=== PATIENT | male | born 1955 | race Hispanic/Latino ===

== ENCOUNTER 2016-07-01 00:39 | Emergency (ER) | payer OTHER ==
[2016-07-01] MEDS ORDERED: LORazepam 2 MG/ML DISP.SYRIN IV ONE (01:03)
[2016-07-01] MEDS ORDERED: LORazepam 2 MG/ML DISP.SYRIN ONE (01:07)
[2016-07-01 01:13] LABS: Hematocrit 40.4 % (42.0-52.0); Hemoglobin 13.9 gm/dL (13.5-18.0); Mean Cell Volume 93.5 fl (78-100); Mean Corpuscular Hemoglobin 32.2 pg (27-31); Mean Corpuscular Hgb Conc 34.4 g/dl (32-36); Mean Platelet Volume 8.7 fl (6.0-9.5); Neutrophil # 2.8 K/mm3 (1.3-6.0); Neutrophil % 47.9 % (42-75.0); Platelet Count 261 K/mm3 (150-450); Red Blood Count 4.32 M/mm3 (4.7-6.0); Red Cell Distribution Width 11.7 % (11.5-14.0); White Blood Count 5.9 K/mm3 (4.0-10.5)
--- NOTE | 2016-07-01 01:21 | ERNOTE ---
Dyspnea - Date Date of Service: 07/01/16 - General Presenting Symptoms: shortness of breath Time Seen by Provider: 07/01/16 00:58 Source: patient Exam Limitations: no limitations - Immun/Allergies/Home Medications Immunizations: IMMUNIZATION HX Immunizations Up to Date No History of Influenza Vaccine No Hx Pneumococcal Vaccination No Allergies/Adverse Reactions: Allergies cortisone [Cortisone] Allergy (Verified 12/21/15 06:29) Iodinated Contrast Media - IV Dye Allergy (Verified 12/21/15 06:29) Penicillins Allergy (Verified 12/21/15 06:29) Home Medications: HOME MEDICATIONS NK [No Home Medication] 07/01/16 [Last Taken Unknown] - History of Present Illness Narrative: 60-year-old male states he awoke from sleep feeling as though he couldn't get a full breath of air. he appear anxious but vital are stable, color is good and his pulse ox is 99% on room air. He denies cold cough wheeze or other constitutional signs or symptoms. He does not have a history of pulmonary disease and has not felt ill recently. He denies chest pain. Severity: mild Treatment AD[employer]ISING [employer]UMNIST: none Initiating event: Reports: sleep - denies having a nightmare Frequency of episodes: Reports: no prior episodes Modifying Factors - (Improves): Reports: lying down Associated Symptoms-Dyspnea: Reports: denies symptoms Review of Systems - Review of Systems Constitutional: Present: no symptoms reported EYE: Present: no symptoms reported ENT: Present: no symptoms reported Respiratory: Present: See HPI Cardiology: Present: no symptoms reported Gastrointestinal/Abdominal: Present: no symptoms reported Genitourinary: Present: no symptoms reported Musculoskeletal: Present: no symptoms reported Skin: Present: no symptoms reported Neurological: Present: See HPI Endocrine: Present: no symptoms reported Hematologic/Lymphatic: Present: no symptoms reported Psych: Present: no symptoms reported - Patient's Past Medical History Patient History - Medical: No pertinent hx Patient History - Cancer: Bladder Patient History - Surgical Procedures: Cancer Surgery - Family History Mother Family History - Medical: No pertinent hx - Social History Living Situations: home Smoking Status: Never smoker Have you smoked in the past 12 months: No Do you dip or chew tobacco: No Alcohol Use: occasionally Drug Use: none Physical Exam - Physical Exam General Appearance: Present: wd/wn, alert, mild distress, anxious Eye Exam: Normal inspection: bilateral, PERRL: bilateral Ears, Nose, Throat: Present: normal ENT inspection, hearing grossly normal, normal pharynx Neck: Present: normal inspection, nontender Respiratory: Present: no respiratory distress, normal breath sounds, no accessory muscle use, chest nontender, lungs clear Cardiovascular/Chest: Present: regular rate, rhythm, no murmur, normal peripheral pulses Gastrointestinal/Abdominal: Present: normal bowel sounds, nontender, nondistended, soft, no organomegaly Rectal Exam: Present: deferred Back Exam: Present: normal inspection, normal range of motion, no CVA tenderness , no vertebral tenderness Extremity Exam: Present: normal inspection, non-tender, no edema, normal range of motion Neurological Exam: Present: alert, oriented, normal mood/affect, no motor/ sensory deficits Skin Exam: Present: normal color, warm/dry Lymphatic Exam: Present: no adenopathy ED Progress - Vital Signs Vital Signs: Vital Signs 07/01/16 00:49 Temperature 36.4 C Pulse Rate 84 Respiratory 15 Rate Blood Pressure 169/96 O2 Sat by Pulse 98 Oximetry - EKG EKG: NSR, no ST T wave changes - X-Ray X-Ray #1 X-Ray: chest - heart and lungs are within normal limits - Progress/Reassessment Chief Complaint: Dyspnea Progress:: Improved Progress Note-Subjective: 07/01/16 01:43 Patient states that he has had panic attacks in the past but hasn't had one for a number of years. His lab and x-rays physical exam are all within normal limits and I believe that he is in fact having panic attacks evening. He did drive over here and does not want to take any medication at this time in the ER so he can drive home. He does have some Xanax at home that he can use when he gets there and I suggest he take one of his Xanax and go to sleep. He was reassured that his heart and lungs and vitals are all normal Departure Clinical Impression: Panic attack - Departure Disposition: Home self-care Instructions: Panic Attacks, [id number] Additional Instructions: Take a Xanax when you get home and go to sleep. Follow up with Dr. Mai Referrals: Michael Em MD [Primary Care Provider] -
[2016-07-01 01:28] LABS: Albumin * 3.4 gm/dl (3.4-5.0); Anion Gap 13.7 mmol/L (6.8-13.8); BUN/Creatinine Ratio 24.5 (9.0-21.6); Bilirubin, Total 0.2 mg/dL (0.0-1.1); Ca. Corrected For Albumin 9.1 mg/dL (8.4-10.2); Calcium * 8.9 mg/dL (7.9-10.9); Carbon Dioxide 25.5 mmol/L (24-32.6); Potassium 4.2 mmol/L (3.4-4.6); Total Protein 6.5 gm/dL (6.2-8.2)
[2016-07-01 01:42] VITALS: BP 144/80
== END 2016-07-01 01:55 | disposition home or self-care (01) ==
LOC: ER 00:39
DX: F41.0 Panic disorder [episodic paroxysmal anxiety] (principal); R06.02 Shortness of breath; Z85.51 Personal history of malignant neoplasm of bladder

== ENCOUNTER 2016-08-23 16:06 | Emergency (ER) | payer OTHER ==
[2016-08-23 16:27] VITALS: BP 139/95
--- OUTSIDE RECORDS SUMMARY | 2016-08-23 18:16 | XMS REPORT | Summary of Care ---
:1955 Author Organization [facility] Address [address] [place] [address] Care Team Providers Name Role Phone Eren Mabry Primary Care Physician Encounter Date(s): 08/07/16 - 08/07/[address] [address] [facility] Discharge Diagnosis: Other hyperlipidemia Discharge Diagnosis: Onychomycosis of right great toe. Discharge Disposition: 01 Discharged to Home or Self Care Attending Physician: Eren Mabry MD Referring Physician: Eren Mabry MD Vital Signs Most recent to oldest [Reference Range]: 1 Peripheral Pulse Rate [60-100 bpm] 76 bpm (08/07/16 1:06 PM) Blood Pressure [90-130/60-90 mmHg] 130/82mmHg (08/07/16 1:06 PM) Mean Arterial Pressure, Cuff 98 mmHg (08/07/16 1:06 PM) Most recent to oldest [Reference Range]: 1 Height/Length Measured 158 cm (08/07/16 1:06 PM) Weight Dosing 89.1 kg (08/07/16 1:06 PM) Weight Measured 89.1 kg (08/07/16 1:06 PM) BSA Measured 1.9 m2 (08/07/16 1:06 PM) Body Mass Index Measured 35.69 kg/m2 (08/07/16 1:06 PM) Problem List No data available for this section Allergies, Adverse Reactions, Alerts Substance Reaction Severity Status contrast media (iodine-based) rash Active cortisone rash Active penicillin rash Active Medications No Known Medications Results Patient Viewable Results Most recent to oldest [Reference Range]: 1 WBC [4.8-10.8 thou/mm3] 6.8 thou/mm3 (08/07/16 1:59 PM) RBC [4.60-6.00 Mil/mm3] 4.67 Mil/mm3 (08/07/16 1:59 PM) Hgb [14.0-17.9 g/dL] 14.9 g/dL (08/07/16 1:59 PM) Hct [42.0-52.0 %] 43.6 % (08/07/16 1:59 PM) MCV [80.0-94.0 fL] 93.4 fL (08/07/16 1:59 PM) MCH [25.0-38.0 pg/cell] 31.9 pg/cell (08/07/16 1:59 PM) MCHC [31.0-37.0 g/dL] 34.2 g/dL (08/07/16 1:59 PM) RDW [11.6-14.8 %] 12.1 % (08/07/16 1:59 PM) Platelet [130-400 thou/mm3] 347 thou/mm3 (08/07/16 1:59 PM) MPV [0.0-99.8 fL] 9.0 fL (08/07/16 1:59 PM) Neutrophils % Auto [50.0-75.0 %] 57.1 % (08/07/16 1:59 PM) Lymphocytes % Auto [15.0-41.0 %] 33.0 % (08/07/16 1:59 PM) Monocytes % Auto [4.0-10.0 %] 7.7 % (08/07/16 1:59 PM) Eosinophils % Auto [0.0-6.0 %] 1.8 % (08/07/16 1:59 PM) Basophil % Auto [0.0-1.0 %] 0.4 % (08/07/16 1:59 PM) Neutrophils Absolute [1.5-5.9 thou/mm3] 3.9 thou/mm3 (08/07/16 1:59 PM) Lymphocytes Absolute [1.5-4.0 thou/mm3] 2.3 thou/mm3 (08/07/16 1:59 PM) Monocytes Absolute [0.0-0.9 thou/mm3] 0.5 thou/mm3 (08/07/16 1:59 PM) Eosinophil Absolute [0.0-0.7 thou/mm3] 0.1 thou/mm3 (08/07/16 1:59 PM) Basophil Absolute [0.0-0.2 thou/mm3] 0.0 thou/mm3 (08/07/16 1:59 PM) Sodium Lvl [136-145 mmol/L] 139 mmol/L (08/07/16 1:59 PM) Potassium Lvl [3.5-5.1 mmol/L] 5.0 mmol/L (08/07/16 1:59 PM) Chloride Lvl [98-107 mmol/L] 103 mmol/L (08/07/16 1:59 PM) Bicarbonate Lvl [21-32 mmol/L] 29 mmol/L (08/07/16 1:59 PM) Anion Gap [12-19] 12 (08/07/16 1:59 PM) Glucose Lvl [74-106 mg/dL] 97 mg/dL (08/07/16 1:59 PM) BUN [7-18 mg/dL] 21 mg/dL *HI* (08/07/16 1:59 PM) Creatinine Lvl [0.70-1.30 mg/dL] 0.84 mg/dL (08/07/16 1:59 PM) BUN/Creat Ratio 25 *NA* (08/07/16 1:59 PM) eGFR AA [>=60] >60 (08/07/16 1:59 PM) eGFR CLEMENT [>=60] >60 (08/07/16 1:59 PM) Calcium Lvl [8.5-10.1 mg/dL] 9.1 mg/dL (08/07/16 1:59 PM) Total Protein [6.4-8.2 g/dL] 7.4 g/dL (08/07/16 1:59 PM) Albumin Lvl [3.4-5.0 g/dL] 4.1 g/dL (08/07/16 1:59 PM) Globulin 3 g/dL *NA* (08/07/16 1:59 PM) A/G Ratio [1.0-2.0] 1.2 (08/07/16 1:59 PM) Bilirubin Total [0.2-1.0 mg/dL] 0.3 mg/dL (08/07/16 1:59 PM) Alkaline Phosphatase [46-116 unit/L] 85 unit/L (08/07/16 1:59 PM) AST [15-37 unit/L] 26 unit/L (08/07/16 1:59 PM) ALT [16-63 unit/L] 40 unit/L (08/07/16 1:59 PM) Cholesterol Total [0-200 mg/dL] 251 mg/dL *HI* (08/07/16 1:59 PM) Triglyceride [0-200 mg/dL] 216 mg/dL *HI* (08/07/16 1:59 PM) HDL Cholesterol [40-60 mg/dL] 42 mg/dL (08/07/16 1:59 PM) LDL Cholesterol (Direct) [0-130 mg/dL] 166 mg/dL *HI* (08/07/16 1:59 PM) Non HDL Cholesterol [0-160 mg/dL] 209 mg/dL *HI* (08/07/16 1:59 PM) TSH [0.36-3.74 mIU/L] 2.42 mIU/L (08/07/16 1:59 PM) UA Color Yellow *NA* (08/07/16 1:59 PM) Urine Clarity Clear *NA* (08/07/16 1:59 PM) Specific [place] [1.001-1.020] 1.020 (08/07/16 1:59 PM) Urine pH [5.0-7.0] 5.0 (08/07/16 1:59 PM) Ketones [Negative] 1+ *ABN* (08/07/16 1:59 PM) Bilirubin [Negative] Negative (08/07/16 1:59 PM) Urine Protein [Negative] Negative (08/07/16 1:59 PM) Glucose [Negative] Negative (08/07/16 1:59 PM) Urine HGB [Negative] 1+ *ABN* (08/07/16 1:59 PM) Urobilinogen [0.2-1.0] 0.2 (08/07/16 1:59 PM) Nitrite [Negative] Negative (08/07/16 1:59 PM) Leuk Esterase [Negative] Negative (08/07/16 1:59 PM) Urine WBC [Negative] 0-2 *ABN* (08/07/16 1:59 PM) Urine RBC [Negative] 0-2 *ABN* (08/07/16 1:59 PM) Squamous Epi [Negative] 0-2 *ABN* (08/07/16 1:59 PM) Mucus [Negative] Trace *ABN* (08/07/16 1:59 PM) Immunizations No data available for this section Procedures Procedure Date Related Diagnosis Body Site Arthroscopy of knee Hernia Meniscal repair Tympanectomy Social History No data available for this section Assessment and Plan No data available for this section
--- OUTSIDE RECORDS SUMMARY | 2016-08-23 18:16 | XMS REPORT | Continuity of Care Document ---
:1955 Author Organization [facility] ([facility]) Address [address] [place] [address] Phone [phone] Care Team Providers Name Role Phone Michael Em Primary Care Provider [phone] Source Comments This disclosure is being made pursuant to the Care Everywhere program, applicable federal and state laws, and may not contain all informaitonavailable regarding this patient.[facility] ([facility]) Active Allergies and Adverse Reactions Allergen Noted Date Severity Reactions Comments Cortisone 01/13/2011 Rash Iodinated Contrast Media - Oral And Iv Dye 01/13/2011 Seizure Penicillins 04/06/2011 Unknown Current Medications No known medications Active Problems Not on file Social History Tobacco Use Types Packs/Day Years Used Date Never Smoker Smokeless Tobacco: Never Used Last Filed Vital Signs Vital Sign Reading Time Taken Blood Pressure 120/82 07/04/2011 2:08 PM [employer] Pulse 92 07/04/2011 2:08 PM [employer] Temperature 36.9 C (98.4 F) 07/04/2011 2:08 PM [employer] Respiratory Rate 20 07/04/2011 2:08 PM [employer] Height 1.676 m (5' 6") 07/04/2011 2:08 PM [employer] [facility] Weight 84.823 kg (187 lb) 07/04/2011 2:08 PM [employer] [facility] Body Mass Index 30.2 07/04/2011 2:08 PM [employer] [facility] Oxygen Saturation 96% 07/04/2011 2:08 PM [employer] [facility] Plan of Care Health Maintenance Due Date Last Done Comments HCV Screening 1955 Hepatitis B Vaccine (1 of 3 - Primary Series) 1955 Tdap Vaccine 1964 Lipid Disorder Screening 12/31/1971 Td Vaccine 12/31/1971 Colonoscopy 2003 Prostate Cancer Screening 12/31/2003 Zoster Vaccine 2013 Influenza Vaccine: Seasonal (#1) 01/23/2016 Results from Last 3 Months Not on file
--- NOTE | 2016-08-23 19:17 | ERNOTE ---
Upper Extremity HPI - Narrative Date of Service: 08/23/16 - General Extremities Pain Location: 2nd finger: left Time Seen by Provider: 08/23/16 17:54 Source: patient Exam Limitations: no limitations - Immun/Allergies/Home Medications Immunizations: IMMUNIZATION HX Immunizations Up to Date Yes History of Influenza Vaccine No Hx Pneumococcal Vaccination No Allergies/Adverse Reactions: Allergies Allergy/AdvReac Type Severity Reaction Status Date / Time cortisone [Cortisone] Allergy Verified 12/21/15 06:29 Iodinated Contrast Media - Allergy Verified 12/21/15 06:29 IV Dye Penicillins Allergy Verified 12/21/15 06:29 Home Medications: HOME MEDICATIONS NK [No Home Medication] 07/01/16 [Last Taken Unknown] - History of Present Illness Narrative: Pt. 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 Pt. denies any numbness, tingling, or decreased ROM. Pt. states that bleeding stops with pressure application but it starts bleeding again when pressure is removed. Pt. denies any use of antcoagulants. Review of Systems - Review of Systems Constitutional: Present: no symptoms reported EYE: Present: no symptoms reported ENT: Present: no symptoms reported Respiratory: Present: no symptoms reported. Absent: shortness of breath, cough , wheezing Cardiology: Present: no symptoms reported. Absent: chest pain, palpitations, edema Gastrointestinal/Abdominal: Present: no symptoms reported Genitourinary: Present: no symptoms reported Musculoskeletal: Present: no symptoms reported. Absent: back pain, joint pain Skin: Present: other - laceration L second finger see HPI Neurological: Present: no symptoms reported. Absent: headache, dizziness/light- headedness, numbness, tingling All Other Systems: All systems neg except as marked - Patient's Past Medical History Patient History - Medical: No pertinent hx Patient History - Cardiac/Respiratory: No pertinent hx Patient History - Cancer: Bladder Patient History - Surgical Procedures: Cancer Surgery Patient History - Other: None - Family History Mother Family History - Medical: No pertinent hx - Social History Living Situations: home Abuse History: No History of abuse Psych History: Hx of Anxiety, Hx of Depression Smoking Status: Never smoker Do you dip or chew tobacco: No Alcohol Use: occasionally Drug Use: none - Immunizations Immunizations Up to Date: Yes Hx Pneumococcal Vaccination: No History of Influenza Vaccine: No Physical Exam - Physical Exam General Appearance: Present: wd/wn, alert, no apparent distress Eye Exam: Normal inspection: bilateral, PERRL: bilateral, EOMI: bilateral Ears, Nose, Throat: Present: normal ENT inspection, normal pharynx Neck: Present: normal inspection, nontender. Absent: lymphadenopathy (R), lymphadenopathy (L) Respiratory: Present: no respiratory distress, normal breath sounds, no accessory muscle use, chest nontender, lungs clear Cardiovascular/Chest: Present: regular rate, rhythm, no murmur, normal peripheral pulses Extremity Exam: Present: normal range of motion, no edema Neurological Exam: Present: alert, oriented, normal mood/affect, no motor/ sensory deficits Skin Exam: Present: normal color, warm/dry, other - laceration 1cm in length 0.5cm repairable volar skin 0.5cm along nailbed approximates with closure of volar portion of wound ED Progress - Vital Signs Patient's Vital Signs:: I have reviewed the patient's vital signs. Vital Signs: Vital Signs 08/23/16 16:19 Temperature 36.9 C Pulse Rate 83 Respiratory 20 Rate Blood Pressure 139/95 O2 Sat by Pulse 100 Oximetry - X-Ray X-Ray #1 X-Ray: finger Interpretation: Reviewed by me X-ray Comments: no fracture in area of injury noted lucency vs artifact radial base second phalanx not fracture as no point tenderness. - Progress/Reassessment Chief Complaint: Hand Injury/Pain Procedures Left Volar Finger 2nd Digit Anesthesia: 1% Lidocaine I & D Prep: betadine prep, sterile drapes applied, sterile dressing applied Length of Repair/Wound (cm): 0.5 Wound's Depth/Shape: into subcutaneous, irregular, nail-avulsed Wound Explored: clean, to base Wound Intervention: irrigated w/saline, multiple flaps aligned Distal NVT: neuro/vasc intact, no tendon injury Wound Repaired With: sutures Suture Size/Type: 5-0, nylon Number of Sutures: 2 Layer Closure: Simple Estimated blood loss (ml): 2 Wound Dressing: sterile dressing applied Complications: Pt pratima procedure well Departure Clinical Impression: Laceration - Departure Disposition: Home self-care Condition: Good Instructions: Laceration Care, Adult, [id number] Additional Instructions: Please apply neosporin and telfa dressing daily. Please have sutures removed in 7-10 days.
== END 2016-08-23 19:37 | disposition home or self-care (01) ==
LOC: ER 16:06
PROC: 0JQK0ZZ Repair Left Hand Subcutaneous Tissue and Fascia, Open Approach (ICD-10-PCS; principal; 2016-08-23)
DX: S61.311A Laceration without foreign body of left index finger with damage to nail, initial encounter (principal); Z85.51 Personal history of malignant neoplasm of bladder; X58.XXXA Exposure to other specified factors, initial encounter; Y93.G3 Activity, cooking and baking

== ENCOUNTER 2016-09-01 10:13 | Emergency (ER) | payer OTHER ==
[2016-09-01 10:13] VITALS: BP 139/95
--- OUTSIDE RECORDS SUMMARY | 2016-09-01 10:20 | XMS REPORT | Continuity of Care Document ---
:1955 Author Organization [facility] ([facility]) Address [address] [place] [address] Phone [phone] Care Team Providers Name Role Phone Michael Em Primary Care Provider [phone] Source Comments This disclosure is being made pursuant to the Care Everywhere program, applicable federal and state laws, and may not contain all informaitonavailable regarding this patient.[facility] ([facility]) Active Allergies and Adverse Reactions Allergen Noted [...] Taken Blood Pressure 120/82 07/04/2011 2:08 PM [employer] Pulse 92 07/04/2011 2:08 PM [employer] Temperature 36.9 C (98.4 F) 07/04/2011 2:08 PM [employer] Respiratory Rate 20 07/04/2011 2:08 PM [employer] Height 1.676 m (5' 6") 07/04/2011 2:08 PM [employer] Weight 84.823 kg (187 lb) 07/04/2011 2:08 PM [employer] Body Mass Index 30.2 07/04/2011 2:08 PM [employer] Oxygen Saturation 96% 07/04/2011 2:08 PM [employer] Plan of Care Health Maintenance Due Date Last Done Comments HCV Screening 1955 Hepatitis B Vaccine (1 of 3 - Primary Series) 1955 Tdap Vaccine 1964 Lipid Disorder Screening 12/31/1971 Td Vaccine 12/31/1971 Colonoscopy 2003 Prostate Cancer Screening 12/31/2003 Zoster Vaccine 2013 Influenza Vaccine: Seasonal (#1) 01/23/2016 Results from Last 3 Months Not on file
== END 2016-09-01 10:30 | disposition home or self-care (01) ==
LOC: ER 10:13
DX: Z48.02 Encounter for removal of sutures (principal)